=== PATIENT | female | born 1955 | race Caucasian/White ===

== ENCOUNTER 2016-12-29 06:38 | Day surgery (SDC) | payer BC, SELFPAY ==
[~2016-12-29 06:38] MED LIST: ACET500CAP PO; ALEVE220 MG PO; ASA5GR PO; ASAB PO; AUG BETAMET0.053 EX; BEN25 PO; BENADRYL 50 MG50 MG PO; CENTRUM TAB1 TAB PO; CLEOCIN300 MG PO; COQ-1010 MG PO; COREG12 PO; COREG3 PO; DEMA20 PO; DUONEB INH; FLEX PO; IMDUR30 PO; KLOR-CON 1010 MEQ PO; L20 PO; LEVAQUIN5T PO; LIPITOR80 MG PO; MULTIPLE VIT PO; NASAL MOIST0.65 % NAS; OXYCCODUDL PO; PEP20 PO; PLAVIX PO; PROAIR HFA INH; PROVENTSOL INH; ZANTAC150 MG PO
== END 2016-12-29 17:12 | disposition home or self-care (01) ==
LOC: SDC 06:38
PROVIDERS: Orthopaedic Surgery
PROC: B01BZZZ Fluoroscopy of Spinal Cord (ICD-10-PCS; 2016-12-29)
PROC: 3E0R3BZ Introduction of Anesthetic Agent into Spinal Canal, Percutaneous Approach (ICD-10-PCS; principal; 2016-12-29 07:15)
DX: M54.16 Radiculopathy, lumbar region (principal); G43.909 Migraine, unspecified, not intractable, without status migrainosus; I50.9 Heart failure, unspecified; E78.00 Pure hypercholesterolemia, unspecified; I25.2 Old myocardial infarction; I11.0 Hypertensive heart disease with heart failure; K21.9 Gastro-esophageal reflux disease without esophagitis; M19.90 Unspecified osteoarthritis, unspecified site; M06.9 Rheumatoid arthritis, unspecified; L40.9 Psoriasis, unspecified; Z88.0 Allergy status to penicillin; Z87.891 Personal history of nicotine dependence; Z90.710 Acquired absence of both cervix and uterus; Z98.890 Other specified postprocedural states
CPT/HCPCS: J1040; J2250; J3010; Q9967